=== PATIENT | female | born 1945 | race Two or more races ===

== ENCOUNTER → 2023-05-01 | Outpatient (CLI) | payer OTHER ==
[~2023-05-01] VITALS: Ht 162.6 cm; Wt 68.0 kg
[~2023-05-01] MED LIST: ACETAMINOPHEN IV 1000 MG/100ML (10MG/ML) IV ONE; AMLO1TAB22 PO; ATOR20TA PO; CHOL100047 PO; CLON0.5T3 PO; CYAN1TAB14 PO; GABA-1250 PO; GABAPENTIN 400 MG CAP PO ONE; HYDR25TA5 PO; LIDO4LIQ EX; LIDOCAINE 4 MG/ML IV ONE; MAGN400T40 OR; METO25TA93 PO; OXYC325T14 PO; QUET50TA PO; SERT-206 PO; TIZA4CAP PO; TRANEXAMIC ACID 0 ML ONE; [UNRECOGNIZED DRUG - CODE] OR; oxyCODONE ER 20 MG TAB PO ONE
== END | disposition home or self-care (01) ==
LOC: EDSTATUS 07:00 → LAB 08:33 → SUR 08:33
PROVIDERS: ATTEND Orthopaedic Surgery
DX: M48.062 Spinal stenosis, lumbar region with neurogenic claudication (principal)
CPT/HCPCS: 86850; 86900; 86901

== ENCOUNTER 2025-02-22 12:56 | Inpatient (IN) | payer OTHER ==
[~2025-02-22] VITALS: Ht 162.6 cm; Wt 73.6 kg
[~2025-02-22 12:56] MED LIST changes: -ACETAMINOPHEN IV 1000 MG/100ML (10MG/ML) IV ONE; -GABAPENTIN 400 MG CAP PO ONE; -LIDOCAINE 4 MG/ML IV ONE; -TRANEXAMIC ACID 0 ML ONE; -oxyCODONE ER 20 MG TAB PO ONE
--- NOTE | 2025-02-22 13:20 | ED.PDOC ---
History of Present Illness HPI Comments 80 year old female with a history of [place], HTN, CVA, and Depression was BIB Daughter for the c/c of Hallucinations. Daughter states that pt has not been able to sleep for the past 3x days, and notes that pt has also been "seeing people" outside her window. Pt notes of taking oxycodone medication 4x a day for her herniated disks. No other symptoms or modifying factors reported at this time. Time Seen by MD: 13:16 Reviewed Notes: Nurses Notes, Medications, Allergies Allergies: Coded Allergies: Iodinated Diagnostic Agents (Unverified Allergy, Intermediate, hives, 04/30/23) Penicillins (Unverified Allergy, Intermediate, hives, 04/30/23) Home Meds Reported Medications Lidocaine HCl (Aspercreme Lidocaine) 4 % Liq, 4 % EX, LIQ 04/30/23 Magnesium Oxide (MAGNESIUM OXIDE) 400 Mg Tab, 400 MG OR DAILY, TAB 04/30/23 Cyanocobalamin (B12) 1,000 Mcg Tab, 1000 MCG PO DAILY, TAB 04/30/23 Cholecalciferol (D3) 1,000 Unit Cap, 1000 UNIT PO DAILY, CAP 04/30/23 Multiple Vitamins W/ Minerals (WOMENS DAILY FORMULA) Formula Tab, 1 OR DAILY, TAB 04/30/23 Sertraline Hcl (Sertraline Hcl) 50 Mg Tab, 50 MG PO, TAB 04/30/23 Quetiapine Fumerate (Seroquel) 50 Mg Tab, 25 MG PO, TAB 04/30/23 Clonazepam (KlonoPIN TABLET) 0.5 Mg Tb, 0.5 MG PO, TAB 04/30/23 Gabapentin (Gabapentin) 300 Mg Cap, 300 MG PO, CAP 04/30/23 Oxycodone W/ Acetaminophen (Apap/Oxycodone) 1 Tab Tab, 1 TAB PO, TAB 04/30/23 Tizanidine Hydrochloride (Zanaflex) 4 Mg Cap, 2 MG PO DAILY, CAP 04/30/23 Hctz (Hydrochlorothiazide) 25 Mg Tab, 1.5 MG PO DAILY, TAB 04/30/23 Atorvastatin Calcium (Lipitor) 20 Mg Tab, 20 MG PO DAILY, TAB 04/30/23 Metoprolol Succinate (Metoprolol Succinate Er) 25 Mg Tab, 25 MG PO DAILY, TAB 04/30/23 Amlodipine Besylate (Amlodipine Besylate) 5 Mg Tab, 5 MG PO DAILY, TAB 04/30/23 Information Source: Patient, Relative (Child) Mode of Arrival: Wheelchair Severity: Moderate Timing: Days Duration: Since onset, Days Prehospital treatment: None Past Medical History PAST MEDICAL HISTORY: CVA, Depression, HTN, [place] 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 [employer] 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 History Family History Family History: Unknown Social History Smoker: Non-Smoker Alcohol: Sober Drugs: Denies Drug Use Lives In: Home Constitutional: denies: chills, diaphoresis, fatigue, fever, malaise, sweats, weakness, others EENTM: denies: blurred vision, double vision, ear bleeding, ear discharge, ear drainage, ear pain, ear ringing, eye pain, eye redness, hearing loss, mouth pain, mouth swelling, nasal discharge, nose bleeding, nose congestion, nose pain, photophobia, tearing, throat pain, throat swelling, voice changes, others Respiratory: denies: cough, hemoptysis, orthopnea, SOB at rest, shortness of breath, SOB with excertion, stridor, wheezing, others Cardiovascular: denies: chest pain, dizzy spells, diaphoresis, Dyspnea on exertion, edema, irregular heart beat, left arm pain, lightheadedness, palpitations, PND, syncope, others Gastrointestinal: reports: nausea; denies: abdomen distended, abdominal pain, blood streaked bowels, constipated, diarrhea, dysphagia, difficulty swallowing, hematemesis, melena, poor appetite, poor fluid intake, rectal bleeding, rectal pain, vomiting, others Genitourinary: denies: abnormal vagina bleeding, burning, dyspareunia, dysuria, flank pain, frequency, hematuria, incontinence, pain, , vagina discharge, urgency, others Neurological: denies: dizziness, fainting, headache, left sided numbness, left sided weakness, numbness, paresthesia, pre-existing deficit, right sided numbness, right sided weakness, seizure, speech problems, tingling, tremors, weakness, others Musculoskeletal: denies: back pain, gout, joint pain, joint swelling, muscle pain, muscle stiffness, neck pain, others Integumetry: denies: bruises, change in color, change in hair/nails, dryness, laceration, lesions, lumps, rash, wounds, others Allergic/Immunocompromised: denies: Difficulty Healing, Frequent Infections, Hives, Itching, others Hematologic/Lymphatic: denies: anemia, blood clots, easy bleeding, easy bruising, swollen glands, others Endocrine: denies: excessive hunger, excessive sweating, excessive thirst, excessive urination, flushing, intolerance to cold, intolerance to heat, unexplained weight gain, unexplained weight loss, others Psychiatric: reports: schizophrenia, sleepless; denies: anxiety, bipolar disorder, depression, hopeless, panic disorder, suicidal, others All Other Systems: Reviewed and Negative Physical Exam General Appearance: Moderate Distress HEENT: Pale Conjuntivae (L), Pale Conjuntivae (R), Pharynx Normal, TMs Normal Neck: Full Range of Motion, Non-Tender, Normal, Normal Inspection Respiratory: Chest Non-Tender, Lungs Clear, No Accessory Muscle Use, No Respiratory Distress, Normal Breath Sounds Cardiovascular: No Edema, No JVD, No Murmur, No Gallop, Normal Peripheral Pulses, Regular Rate/Rhythm Breast Exam: Deferred Gastrointestinal: No Organomegaly, Non Tender, No Pulsatile Mass, Normal Bowel Sounds, Soft Genitalia: Deferred Pelvic: Deferred Rectal: Deferred Extremities: No calf tenderness, Normal capillary refill, Normal inspection, Normal range of motion, Non-tender, No pedal edema Musculoskeletal : Apperance: Normal Neurologic: Alert, manager environmental II-XII nml as Tested, No Motor Deficits, Normal Affect, Normal Mood, No Sensory Deficits Cerebellar Function: Normal Reflexes: Normal Skin: Dry, Normal Color, Warm Lymphatic: No Adenopathy Was a procedure done? Was a procedure done?: No Differential Dx Considerations may include: Generalized weakness, electrolyte imbalance, dehydration X-Ray, Labs, Meds, VS Vital Signs Date Time Temp Pulse Resp B/P (MAP) Pulse Ox O2 Delivery O2 Flow Rate FiO2 02/22/25 13:10 99.7 86 18 99/75 (83) 98 99.7 Lab Test 02/22/25 13:39 02/22/25 13:00 Range/Units White Blood Count 4.6 4.4-10.8 10^3/uL Red Blood Count 4.09 4.0-5.20 10^6/uL Hemoglobin 13.1 12.2-16.2 g/dL Hematocrit 38.8 36.0-46.0 % Mean Corpuscular Volume 94.9 80.0-100.0 fL Mean Corpuscular Hemoglobin 32.1 H 28.0-32.0 pg Mean Corpuscular Hemoglobin Concent 33.9 32.0-36.0 g/dL Red Cell Distribution Width 15.5 H 11.8-14.3 % Platelet Count 161 140-450 10^3/uL Mean Platelet Volume 9.0 6.9-10.8 fL Neutrophils (%) (Auto) 62.5 37.0-80.0 % Lymphocytes (%) (Auto) 25.3 10.0-50.0 % Monocytes (%) (Auto) 10.4 0.0-12.0 % Eosinophils (%) (Auto) 1.3 0.0-7.0 % Basophils (%) (Auto) 0.5 0.0-2.0 % Neutrophils # (Auto) 2.9 1.6-8.6 10 ^3/uL Lymphocytes # (Auto) 1.2 0.4-5.4 10 ^3/uL Monocytes # (Auto) 0.5 0-1.3 10 ^3/uL Eosinophils # (Auto) 0.1 0-0.8 10 ^3/uL Basophils # (Auto) 0 0-0.2 10 ^3/uL Nucleated Red Blood Cells 0.0 % Sodium Level 141 136-145 mmol/L Potassium Level 3.9 3.5-5.1 mmol/L Chloride Level 106 98-107 mmol/L Carbon Dioxide Level 28 20-31 mmol/L Anion Gap 7 5-15 Blood Urea Nitrogen 16 9-23 mg/dL Creatinine 1.00 0.550-1.02 mg/dL Glomerular Filtration Rate Calc 57 >90 mL/min BUN/Creatinine Ratio 16.0 10.0-20.0 Serum Glucose 130 H 74-106 mg/dL Calcium Level 9.9 8.7-10.4 mg/dL Plasma/Serum Blood Alcohol < 3.0 <10 mg/dL Urine Color Light-yellow Yellow Urine Clarity Clear Clear Urine pH 7.0 5.0-9.0 Urine Specific [place] 1.014 1.001-1.035 Urine Protein Negative Negative Urine Ketones Negative Negative Urine Blood Negative Negative /uL Urine Nitrite Negative Negative Urine Bilirubin Negative Negative Urine Urobilinogen Normal Negative mg/dL Urine Leukocyte Esterase 1+ Negative /uL Urine RBC 2 0 - 4 /hpf Urine Microscopic WBC 2 0-5 /HPF Urine Squamous Epithelial Cells Few <5 /hpf Urine Bacteria Few H None Seen /hpf Urine Hyaline Casts Few 0 - 2 /lpf Urine Glucose Normal Normal mg/dL IMPRESSION: No acute intracranial abnormality. The urine test is positive for UTI The CBC and chemistry panel are within normal limits The alcohol level is negative At this time the patient is being given Rocephin 1 g IV piggyback At this time, the patient is being admitted to the hospitalist The patient understands and agrees with the management. Time of 1ST Reevaluation: 13:46 Reevaluation 1ST: Unchanged Patient Education/Counseling: Diagnosis, Treatment, Prognosis Family Education/Counseling: Diagnosis, Treatment, Prognosis SEPSIS Sepsis Screen Physician Orders Head Without Contrast (02/22/25 13:16) Geothermal Production Manager (02/22/25 13:16) Pulse Oximetry (02/22/25 13:16) Blood Pressure (02/22/25 13:16) Heplock Iv (02/22/25 13:16) Ceftriaxone 1gm/50ml D5w (Rocephin) (02/22/25 16:15) Vital Signs Date Time Temp Pulse Resp B/P (MAP) Pulse Ox O2 Delivery O2 Flow Rate FiO2 02/22/25 13:10 99.7 86 18 99/75 (83) 98 99.7 Laboratory Tests Test 02/22/25 13:39 White Blood Count 4.6 10^3/uL (4.4-10.8) Departure 1 Departure Time of Disposition: 16:15 Impression: Primary Impression: Confusion Additional Impressions: UTI (urinary tract infection) Qualified Codes: N30.00 - Acute cystitis without hematuria Medication reaction Qualified Codes: T50.905A - Adverse effect of unspecified drugs, medicaments and biological substances, initial encounter Disposition: ADMITTED INPATIENT Admit to: Med Surg Condition: Fair Critical Care Note Critical Care Time?: No Stability Stability form required: Yes Unstable for transfer: ED Physician Assesment (Clinical assesment) Heart Score Heart Score: Heart Score Response (Comments) Value History Moderate Suspicious 1 EKG Normal 0 Age 45-64 1 Risk Factors 1 or 2 risk factors 1 Troponin Normal limit 0 Total 3 I personally scribed for ABEBE CYR MD ([email or web address]) on 02/22/25 at 13:20. Electronically submitted by Wesley Irving ([email or web address]). I personally scribed for ABEBE CYR MD ([email or web address]) on 02/22/25 at 13:52. Electronically submitted by Wesley Irving ([email or web address]). ABEBE CYR MD Feb 22, 2025 13:20
--- NOTE | 2025-02-22 13:46 | DVH ---
EXAM: CT HEAD WITHOUT CONTRAST INDICATION: aloc TECHNIQUE: CT of the head without intravenous contrast. Radiation Dose : 1. Head: CT Dose: CTDI volume is 53 mGy. Dose-length product is 962 mGy*cm The dose indicators for CT are the volume Computed Tomography (CT) Dose Index (CTDIvol) and the Dose Length Product (DLP), and are measured in units of mGy and mGy-cm, respectively. These indicators are not patient dose, but values generated from the CT scanner acquisition factors. The report includes radiation exposure data for exposures received during this examination. COMPARISON: None FINDINGS: There is no evidence of acute intracranial hemorrhage, extra-axial collection, mass effect, midline s hift, herniation or hydrocephalus. The ventricles, sulci and cisterns are age appropriate. The kan-white differentiation is intact. Patchy periventricular and subcortical white matter hypoattenuation is nonspecific but may be related to small vessel ischemic disease. The visualized paranasal sinuses and mastoid air cells are clear. The surrounding soft tissues and osseous structures are unremarkable. IMPRESSION: No acute intracranial abnormality. Radiation optimization: All CT scans at this facility use at least one of these dose optimization tierney hniques: automated exposure control mA and/or kV adjustment per patient size (includes targeted exam s where dose is matched to clinical indication) or iterative reconstruction.
[2025-02-22 13:58] LABS: Hematocrit 38.8 % (36.0-46.0); Hemoglobin 13.1 g/dL (12.2-16.2); Mean Corpuscular Hemoglobin 32.1 pg (28.0-32.0); Mean Corpuscular Volume 94.9 fL (80.0-100.0); Nucleated Red Blood Cells % 0.0 %
[2025-02-22 14:08] LABS: Chloride 106 mmol/L (98-107); Potassium 3.9 mmol/L (3.5-5.1); Sodium 141 mmol/L (136-145)
[2025-02-22 14:09] LABS: Anion Gap 7 (5-15); Carbon Dioxide 28 mmol/L (20-31)
[2025-02-22 14:10] LABS: Calcium 9.9 mg/dL (8.7-10.4)
[2025-02-22 14:14] LABS: BUN/Creatinine Ratio 16.0 (10.0-20.0); Blood Urea Nitrogen 16 mg/dL (9-23)
[2025-02-22 14:15] LABS: Glucose 130 mg/dL (74-106)
[2025-02-22 14:21] LABS: Urine Protein, UAD Negative (Negative)
[2025-02-22] MEDS ORDERED: ONDANSETRON HCL 4 MG/2 ML VIAL IV PRN (16:30)
[2025-02-22] MEDS ORDERED: NITROGLYCERIN 0.4 MG SL TAB SL PRN (16:30)
[2025-02-22] MEDS: SODIUM CHLORIDE 0.9% 1,000 ML IV SCH (17:24)
[2025-02-22] MEDS: cefTRIAXone 1GM/50ML D5W 50 ML IV ONE (17:25)
[2025-02-22 17:29] LABS: Free T4 (Free Thyroxine) 0.75 ng/dL (0.89-1.76)
[2025-02-22 19:10] LABS: Benzodiazephine Screen, Urine Neg (NEGATIVE); Opiate Scree,Urine Neg (NEGATIVE)
[2025-02-22 19:12] LABS: Amphetamine Screen, Urine Neg (NEGATIVE); Barbiturate Scree,Urine Neg (NEGATIVE); Cannabinoid Screen, Urine Neg (NEGATIVE); Cocaine Screen, Urine Neg (NEGATIVE); Phencyclidine Screen, Urine Neg (NEGATIVE)
[2025-02-22 21:31] VITALS: PULSE 87; RESP 16; O2SAT 99
[2025-02-22] MEDS ORDERED: GABAPENTIN 300 MG CAP PO SCH (22:00)
[2025-02-22 22:33] VITALS: BP 129/91; PULSE 76; RESP 16; TEMP 98.2; O2SAT 99
[2025-02-22] MEDS: GABAPENTIN 100 MG CAP PO SCH (22:51)
[2025-02-23] VITALS (8 sets, daily range): BP systolic 112–134; BP diastolic 66–87; PULSE 66–81; RESP 15–18; TEMP 97.9–98.9; O2SAT 97–99
--- NOTE | 2025-02-23 01:37 | DVHHP2 ---
CHARLOTTE LOZANO [address] 02/23/25 0137: History of Present Illness Reason for Visit: Confusion/hallucinations History of Present Illness Information in this HPI is limited due to the patient being a poor historian and hard of hearing. Patient was brought into the emergency department by her daughter for increased confusion and hallucinations x3 days. Emergency department report patient is dependent on opioids for chronic back pain. At this time patient feels this has been going on for a week worsening on the day of arrival. Patient also endorsed fall 2 months ago. At this time there are no complaints of fevers, chills, dizziness, shortness of breath, chest pain, abdominal pain, pelvic pain, urinary symptoms. 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 Dyspnea, Edema, Lt Headedness, Other Gastrointestinal: No: Nausea, Vomiting, Abdominal Pain, Diarrhea, Constipation, Melena, Hematochezia, Other Genitourinary: No Dysuria, No Frequency, No Incontinence, No Hematuria, No Retention, No Other Musculoskeletal: No: other, neck pain, shoulder pain, arm pain, back pain, hand pain, leg pain, foot pain Skin: No: Rash, Lesions, Jaundice, Bruising, Other Neurological: Confusion; No: Weakness, Numbness, Incoordination, Change in speech, Seizures, Other Allergies: Coded Allergies: Iodinated Diagnostic Agents (Unverified Allergy, Intermediate, hives, 04/30/23) Penicillins (Unverified Allergy, Intermediate, hives, 04/30/23) Medications Current Medications Medications Dose Ordered Sig/Vikas Route Start Time Stop Time Status Last Admin Dose Admin Amlodipine Besylate 5 mg DAILY PO 02/23/25 10:00 Atorvastatin Calcium 20 mg DAILY PO 02/23/25 10:00 Gabapentin 100 mg TID PO 02/22/25 22:00 UNV Hydrochlorothiazide 1.5 mg DAILY PO 02/23/25 10:00 Metoprolol Succinate 25 mg DAILY PO 02/23/25 10:00 Trazodone HCl 50 mg HS PO 02/22/25 22:00 02/22/25 22:53 50 MG Nitroglycerin 0.4 mg Q5MINP PRN SL 02/22/25 16:30 Morphine Sulfate 2 mg Q30M PRN IV 02/22/25 16:30 Ondansetron HCl 4 mg Q4HPRN PRN IV 02/22/25 16:30 Morphine Sulfate 2 mg Q6HPRN PRN IV 02/22/25 16:30 Famotidine 20 mg DAILY PO 02/23/25 10:00 Sodium Chloride 1,000 ml @ 75 mls/hr [id number] IV 02/22/25 16:30 02/22/25 22:51 75 MLS/HR Enoxaparin Sodium 40 mg DAILY SC 02/23/25 10:00 Gabapentin 100 mg TID PO 02/22/25 22:00 02/22/25 22:51 100 MG Exam Vital Signs Vital Signs Date Time Temp Pulse Resp B/P (MAP) Pulse Ox O2 Delivery O2 Flow Rate FiO2 02/22/25 23:02 Room Air* 0 21 02/22/25 22:33 98.2 76 16 129/91 (104) 99 98.2 General Appearance: Alert, Cooperative, No acute distress HEENT: Atraumatic, PERRLA, EOMI Respiratory: Clear to auscultation Cardiovascular: Regular rate, Normal S1, Normal S2 Abdominal: Normal bowel sounds, Soft, No tenderness Extremities: No cyanosis, No edema Neuro: Normal speech, Strength at 5/5 X4 ext Psych/Mental Status: Mental status NL, Mood NL Labs/Xrays Labs Test 02/22/25 13:39 02/22/25 13:00 Range/Units White Blood Count 4.6 4.4-10.8 10^3/uL Red Blood Count 4.09 4.0-5.20 10^6/uL Hemoglobin 13.1 12.2-16.2 g/dL Hematocrit 38.8 36.0-46.0 % Mean Corpuscular Volume 94.9 80.0-100.0 fL Mean Corpuscular Hemoglobin 32.1 H 28.0-32.0 pg Mean Corpuscular Hemoglobin Concent 33.9 32.0-36.0 g/dL Red Cell Distribution Width 15.5 H 11.8-14.3 % Platelet Count 161 140-450 10^3/uL Mean Platelet Volume 9.0 6.9-10.8 fL Neutrophils (%) (Auto) 62.5 37.0-80.0 % Lymphocytes (%) (Auto) 25.3 10.0-50.0 % Monocytes (%) (Auto) 10.4 0.0-12.0 % Eosinophils (%) (Auto) 1.3 0.0-7.0 % Basophils (%) (Auto) 0.5 0.0-2.0 % Neutrophils # (Auto) 2.9 1.6-8.6 10 ^3/uL Lymphocytes # (Auto) 1.2 0.4-5.4 10 ^3/uL Monocytes # (Auto) 0.5 0-1.3 10 ^3/uL Eosinophils # (Auto) 0.1 0-0.8 10 ^3/uL Basophils # (Auto) 0 0-0.2 10 ^3/uL Nucleated Red Blood Cells 0.0 % Sodium Level 141 136-145 mmol/L Potassium Level 3.9 3.5-5.1 mmol/L Chloride Level 106 98-107 mmol/L Carbon Dioxide Level 28 20-31 mmol/L Anion Gap 7 5-15 Blood Urea Nitrogen 16 9-23 mg/dL Creatinine 1.00 0.550-1.02 mg/dL Glomerular Filtration Rate Calc 57 >90 mL/min BUN/Creatinine Ratio 16.0 10.0-20.0 Serum Glucose 130 H 74-106 mg/dL Calcium Level 9.9 8.7-10.4 mg/dL Vitamin B12 Level 225 211-911 pg/mL Thyroid Stimulating Hormone (TSH) 6.70 H 0.55-4.78 uIU/mL Free Thyroxine (T4) Calculated 0.75 L 0.89-1.76 ng/dL Plasma/Serum Blood Alcohol < 3.0 <10 mg/dL Urine Color Light-yellow Yellow Urine Clarity Clear Clear Urine pH 7.0 5.0-9.0 Urine Specific [place] 1.014 1.001-1.035 Urine Protein Negative Negative Urine Ketones Negative Negative Urine Blood Negative Negative /uL Urine Nitrite Negative Negative Urine Bilirubin Negative Negative Urine Urobilinogen Normal Negative mg/dL Urine Leukocyte Esterase 1+ Negative /uL Urine RBC 2 0 - 4 /hpf Urine Microscopic WBC 2 0-5 /HPF Urine Squamous Epithelial Cells Few <5 /hpf Urine Bacteria Few H None Seen /hpf Urine Hyaline Casts Few 0 - 2 /lpf Urine Glucose Normal Normal mg/dL Urine Opiates Screen Neg NEGATIVE Urine Fentanyl Screen Neg NEGATIVE Urine Barbiturates Screen Neg NEGATIVE Urine Phencyclidine Screen Neg NEGATIVE Urine Amphetamines Screen Neg NEGATIVE Urine Benzodiazepines Screen Neg NEGATIVE Urine Cocaine Screen Neg NEGATIVE Urine Cannabinoids Screen Neg NEGATIVE Assessment/Plan Assessment/Plan Altered mental status UTI Hypertension Hx CVA Plan Admit medical floor Urine culture pending IVF, IV ABX Continue home medication Physical therapy evaluation GI ppx Pepcid / DVT ppx lovenox Plan discussed with: Patient Date of Service: Feb 23, 2025 Billing Provider: MARISA POST MD Common Visit Codes: NOT BILLABLE MARISA PSOT MD 02/23/25 1414: Review of Systems Allergies: Coded Allergies: Iodinated Diagnostic Agents (Unverified Allergy, Intermediate, hives, 04/30/23) Penicillins (Unverified Allergy, Intermediate, hives, 04/30/23) Additional Comments Additional Comments Additional Comments Patient's chart is reviewed and discussed with the nurse practitioner. Patient is seen and evaluated and admitted by nurse practitioner this morning. I agree with his evaluation, documentation, assessment and care plan as outlined. CHARLOTTE LOZANO NP Feb 23, 2025 01:37 MARISA POST MD Feb 23, 2025 14:14
[2025-02-23] MEDS: ATORVASTATIN 20 MG TAB PO SCH (09:55)
[2025-02-23] MEDS: METOPROLOL SUCCINATE XL 50 MG TAB PO SCH (09:55)
[2025-02-23] MEDS: ENOXAPARIN SOD 40 MG/0.4 ML SYRINGE SC SCH (09:55)
[2025-02-23] MEDS: FAMOTIDINE 20 MG TAB PO SCH (09:55)
[2025-02-23] MEDS ORDERED: hydroCHLOROthiazide 25 MG TAB PO SCH (10:00)
[2025-02-23] MEDS: hydroCHLOROthiazide 25 MG TAB PO SCH (14:12)
[2025-02-23] MEDS: MORPHINE SULFATE INJ 2 MG/ml SYRG IV PRN (14:19)
--- NOTE | 2025-02-23 15:58 | DVHINCON2 ---
Date of Service if different f: Feb 23, 2025 Consultation (PREEMPTION) Labs Laboratory Tests Test 02/22/25 13:00 02/22/25 13:39 Urine Color Light-yellow (Yellow) Urine Clarity Clear (Clear) Urine pH 7.0 (5.0-9.0) Urine Specific [place] 1.014 (1.001-1.035) Urine Protein Negative (Negative) Urine Ketones Negative (Negative) Urine Blood Negative /uL (Negative) Urine Nitrite Negative (Negative) Urine Bilirubin Negative (Negative) Urine Urobilinogen Normal mg/dL (Negative) Urine Leukocyte Esterase 1+ /uL (Negative) Urine RBC 2 /hpf (0 - 4) Urine Microscopic WBC 2 /HPF (0-5) Urine Squamous Epithelial Cells Few /hpf (<5) Urine Bacteria Few /hpf (None Seen) Urine Hyaline Casts Few /lpf (0 - 2) Urine Glucose Normal mg/dL (Normal) Urine Opiates Screen Neg (NEGATIVE) Urine Fentanyl Screen Neg (NEGATIVE) Urine Barbiturates Screen Neg (NEGATIVE) Urine Phencyclidine Screen Neg (NEGATIVE) Urine Amphetamines Screen Neg (NEGATIVE) Urine Benzodiazepines Screen Neg (NEGATIVE) Urine Cocaine Screen Neg (NEGATIVE) Urine Cannabinoids Screen Neg (NEGATIVE) White Blood Count 4.6 10^3/uL (4.4-10.8) Red Blood Count 4.09 10^6/uL (4.0-5.20) Hemoglobin 13.1 g/dL (12.2-16.2) Hematocrit 38.8 % (36.0-46.0) Mean Corpuscular Volume 94.9 fL (80.0-100.0) Mean Corpuscular Hemoglobin 32.1 pg (28.0-32.0) Mean Corpuscular Hemoglobin Concent 33.9 g/dL (32.0-36.0) Red Cell Distribution Width 15.5 % (11.8-14.3) Platelet Count 161 10^3/uL (140-450) Mean Platelet Volume 9.0 fL (6.9-10.8) Neutrophils (%) (Auto) 62.5 % (37.0-80.0) Lymphocytes (%) (Auto) 25.3 % (10.0-50.0) Monocytes (%) (Auto) 10.4 % (0.0-12.0) Eosinophils (%) (Auto) 1.3 % (0.0-7.0) Basophils (%) (Auto) 0.5 % (0.0-2.0) Neutrophils # (Auto) 2.9 10 ^3/uL (1.6-8.6) Lymphocytes # (Auto) 1.2 10 ^3/uL (0.4-5.4) Monocytes # (Auto) 0.5 10 ^3/uL (0-1.3) Eosinophils # (Auto) 0.1 10 ^3/uL (0-0.8) Basophils # (Auto) 0 10 ^3/uL (0-0.2) Nucleated Red Blood Cells 0.0 % Sodium Level 141 mmol/L (136-145) Potassium Level 3.9 mmol/L (3.5-5.1) Chloride Level 106 mmol/L (98-107) Carbon Dioxide Level 28 mmol/L (20-31) Anion Gap 7 (5-15) Blood Urea Nitrogen 16 mg/dL (9-23) Creatinine 1.00 mg/dL (0.550-1.02) Glomerular Filtration Rate Calc 57 mL/min (>90) BUN/Creatinine Ratio 16.0 (10.0-20.0) Serum Glucose 130 mg/dL (74-106) Calcium Level 9.9 mg/dL (8.7-10.4) Vitamin B12 Level 225 pg/mL (211-911) Thyroid Stimulating Hormone (TSH) 6.70 uIU/mL (0.55-4.78) Free Thyroxine (T4) Calculated 0.75 ng/dL (0.89-1.76) Plasma/Serum Blood Alcohol < 3.0 mg/dL (<10) Microbiology Date/Time Source Procedure Growth Status 02/22/25 13:00 Urine - Midstream Clean Catch Urine Culture - Preliminary Resulted Appetite: Fair Side effects of medications: No Appearance: Stated age Psychomotor activity: WNL Behavioral: Cooperative Eye contact: Appropriate Speech: WNL Affect: Mood Congruent Mood: Depressed, Anxious Thought processes: Linear/Goal-directed Thought content: Hallucinations (auditory) Suicidal ideations: Absent Homicidal ideations: Absent Orientation: Person, Place, Time, Situation Memory intact: Recent Intellect: Average Abstractability: WNL Concentration: Adequate Attention: Adequate Judgement: WNL Insight: Fair Vitals Vital Signs Date Time Temp Pulse Resp B/P (MAP) Pulse Ox O2 Delivery O2 Flow Rate FiO2 02/23/25 14:19 79 16 123/82 02/23/25 13:00 98.4 97 98.4 02/23/25 08:00 Room Air* 0 21 Current medications Current Medications Medications Dose Ordered Sig/Vikas Route Start Time Stop Time Status Last Admin Dose Admin Amlodipine Besylate 5 mg DAILY PO 02/23/25 10:00 02/23/25 09:55 5 MG Atorvastatin Calcium 20 mg DAILY PO 02/23/25 10:00 02/23/25 09:55 20 MG Gabapentin 100 mg TID PO 02/22/25 22:00 UNV Metoprolol Succinate 25 mg DAILY PO 02/23/25 10:00 Trazodone HCl 50 mg HS PO 02/22/25 22:00 02/22/25 22:53 50 MG Nitroglycerin 0.4 mg Q5MINP PRN SL 02/22/25 16:30 Morphine Sulfate 2 mg Q30M PRN IV 02/22/25 16:30 Ondansetron HCl 4 mg Q4HPRN PRN IV 02/22/25 16:30 Morphine Sulfate 2 mg Q6HPRN PRN IV 02/22/25 16:30 02/23/25 14:19 2 MG Famotidine 20 mg DAILY PO 02/23/25 10:00 02/23/25 09:55 20 MG Sodium Chloride 1,000 ml @ 75 mls/hr [id number] IV 02/22/25 16:30 02/22/25 22:51 75 MLS/HR Enoxaparin Sodium 40 mg DAILY SC 02/23/25 10:00 02/23/25 09:55 40 MG Gabapentin 100 mg TID PO 02/22/25 22:00 02/23/25 14:12 100 MG Hydrochlorothiazide 12.5 mg DAILY PO 02/23/25 12:15 02/23/25 14:12 12.5 MG Treatment plan discussed: With staff Medication adjusted: Yes Diagnosis: unspecified psychosis, 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 Patient does not appear to meet hold criteria Recommend to restart sertraline 50mg po daily. d/c Seroquel and trazodone Zyprexa 5mg po qhs for psychosis Re-evaluation as needed. History of Present Illness Reason for Consult : Patient experiencing hallucinations HPI : This is a 80-year-old female with prior hx of depression and anxiety presents here bib daughter for auditory hallucinations. Patient is evaluated via telepsychiatry. Patient is hard of hearing and without her hearing aid, somewhat made interview more difficult, nurse helped to relay questions from automobile service writer to her. On evaluation, patient reports having auditory hallucinations for less one year. She denies voices prior this. She denies any known prior stressors before this. She did not tell anyone about the hallucinations including her psychiatrist because did not want people to think she was crazy. She reports jona cuadra heard her talking to voices at home and brought here for evaluation. She reports hearing voices of mostly males and loud music. She describes as sometimes like "an argument" such as voices telling her someone is coming to your house. She argues with voices denying it. She reports feeling like someone is trying to control me through the voices. She often becomes frustrated and curses at the voices. She denies voices are commanding. She denies any visual hallucinations. She feels depressed. She denies feeling hopeless. She denies suicidal/homicidal ideation. She reports " I love me too much." She wants to get help for this to go away. She reports having poor sleep due to voices. She reports appetite as ok. Past Psychiatric History : She reports prior diagnoses of depression and anxiety. She has a psychiatrist and therapist. Per chart review, received sertraline 50mg and seroquel, patient was unable to recall names of medication, but reports taking a lot of medications. It is not clear if compliant with meds She does reports hx of Klonopin and after moving to new location and new psychiatrist, stopped receiving this. She reports doing fine until voices began about less than one year . She denies prior psych admissions or holds. She denies prior suicide attempts. Past Medical History : She hx of HTN, CVA, Social History : She lives with daughter, not . She denies any history or current use of drugs or alcohol. Toxicology is negative. She reports both mother and grandmother had dementia. SIGIFREDO RICARDO [facility] Feb 23, 2025 15:57
[2025-02-24 01:00] VITALS: BP 130/76; PULSE 78; RESP 17; TEMP 98; O2SAT 98
[2025-02-24 04:45] VITALS: BP 136/84; PULSE 74; RESP 16; TEMP 98.3; O2SAT 98
[2025-02-24 05:52] LABS: Chloride 107 mmol/L (98-107); Potassium 3.9 mmol/L (3.5-5.1); Sodium 142 mmol/L (136-145)
[2025-02-24 05:53] LABS: Anion Gap 8 (5-15); Carbon Dioxide 27 mmol/L (20-31)
[2025-02-24 05:54] LABS: Calcium 10.0 mg/dL (8.7-10.4)
[2025-02-24 05:58] LABS: BUN/Creatinine Ratio 17.4 (10.0-20.0); Blood Urea Nitrogen 15 mg/dL (9-23); Glucose 91 mg/dL (74-106)
[2025-02-24 07:46] VITALS: RESP 16
[2025-02-24] MEDS: MORPHINE SULFATE INJ 2 MG/ml SYRG IV PRN (08:51)
[2025-02-24 09:00] VITALS: BP 123/86; PULSE 80; RESP 18; TEMP 98.3; O2SAT 98
[2025-02-24 12:30] VITALS: BP 128/88; PULSE 71; RESP 18; TEMP 98.2; O2SAT 97
[2025-02-24] MEDS ORDERED: OLAN1TAB7 PO (14:25)
--- NOTE | 2025-02-24 14:27 | DVHDS2 ---
Discharge Summary Date of Admission Feb 22, 2025 at 16:22 Date of Discharge: Feb 24, 2025 Admitting Diagnosis Hearing sounds Labs/Diagnostic Data: Laboratory Results Test 02/24/25 04:58 02/22/25 13:39 02/22/25 13:00 Sodium Level 142 mmol/L (136-145) Potassium Level 3.9 mmol/L (3.5-5.1) Chloride Level 107 mmol/L (98-107) Carbon Dioxide Level 27 mmol/L (20-31) Anion Gap 8 (5-15) Blood Urea Nitrogen 15 mg/dL (9-23) Creatinine 0.86 mg/dL (0.550-1.02) Glomerular Filtration Rate Calc 69 mL/min (>90) BUN/Creatinine Ratio 17.4 (10.0-20.0) Serum Glucose 91 mg/dL (74-106) Calcium Level 10.0 mg/dL (8.7-10.4) White Blood Count 4.6 10^3/uL (4.4-10.8) Red Blood Count 4.09 10^6/uL (4.0-5.20) Hemoglobin 13.1 g/dL (12.2-16.2) Hematocrit 38.8 % (36.0-46.0) Mean Corpuscular Volume 94.9 fL (80.0-100.0) Mean Corpuscular Hemoglobin 32.1 pg (28.0-32.0) Mean Corpuscular Hemoglobin Concent 33.9 g/dL (32.0-36.0) Red Cell Distribution Width 15.5 % (11.8-14.3) Platelet Count 161 10^3/uL (140-450) Mean Platelet Volume 9.0 fL (6.9-10.8) Neutrophils (%) (Auto) 62.5 % (37.0-80.0) Lymphocytes (%) (Auto) 25.3 % (10.0-50.0) Monocytes (%) (Auto) 10.4 % (0.0-12.0) Eosinophils (%) (Auto) 1.3 % (0.0-7.0) Basophils (%) (Auto) 0.5 % (0.0-2.0) Neutrophils # (Auto) 2.9 10 ^3/uL (1.6-8.6) Lymphocytes # (Auto) 1.2 10 ^3/uL (0.4-5.4) Monocytes # (Auto) 0.5 10 ^3/uL (0-1.3) Eosinophils # (Auto) 0.1 10 ^3/uL (0-0.8) Basophils # (Auto) 0 10 ^3/uL (0-0.2) Nucleated Red Blood Cells 0.0 % Vitamin B12 Level 225 pg/mL (211-911) Thyroid Stimulating Hormone (TSH) 6.70 uIU/mL (0.55-4.78) Free Thyroxine (T4) Calculated 0.75 ng/dL (0.89-1.76) Plasma/Serum Blood Alcohol < 3.0 mg/dL (<10) Urine Color Light-yellow (Yellow) Urine Clarity Clear (Clear) Urine pH 7.0 (5.0-9.0) Urine Specific [place] 1.014 (1.001-1.035) Urine Protein Negative (Negative) Urine Ketones Negative (Negative) Urine Blood Negative /uL (Negative) Urine Nitrite Negative (Negative) Urine Bilirubin Negative (Negative) Urine Urobilinogen Normal mg/dL (Negative) Urine Leukocyte Esterase 1+ /uL (Negative) Urine RBC 2 /hpf (0 - 4) Urine Microscopic WBC 2 /HPF (0-5) Urine Squamous Epithelial Cells Few /hpf (<5) Urine Bacteria Few /hpf (None Seen) Urine Hyaline Casts Few /lpf (0 - 2) Urine Glucose Normal mg/dL (Normal) Urine Opiates Screen Neg (NEGATIVE) Urine Fentanyl Screen Neg (NEGATIVE) Urine Barbiturates Screen Neg (NEGATIVE) Urine Phencyclidine Screen Neg (NEGATIVE) Urine Amphetamines Screen Neg (NEGATIVE) Urine Benzodiazepines Screen Neg (NEGATIVE) Urine Cocaine Screen Neg (NEGATIVE) Urine Cannabinoids Screen Neg (NEGATIVE) Other Laboratory Tests 02/24/25 04:58 02/22/25 13:39 Brief Hx & Hospital Course: Information in this HPI is limited due to the patient being a poor historian and hard of hearing. Patient was brought into the emergency department by her daughter for increased confusion and hallucinations x3 days. Emergency department report patient is dependent on opioids for chronic back pain. At this time patient feels this has been going on for a week worsening on the day of arrival. Patient also endorsed fall 2 months ago. At this time there are no complaints of fevers, chills, dizziness, shortness of breath, chest pain, abdominal pain, pelvic pain, urinary symptoms. She is admitted and evaluated by tele psychiatrist. Patient noted to have a auditory hallucinations hearing music. Her psychiatric medications have been adjusted. Patient is advised to discontinue Xanax and Seroquel. Patient advised to resume her antidepressant and started on olanzapine. Otherwise rest of her workup and evaluations normal in the hospital. She is feeling better. Therefore it is felt she could be safely discharged home. I have talked with the patient she has verbalized understanding her medication adjustments and discharge care plan as outlined. Condition at Discharge: Stable Final Diagnosis/Problems List Auditory hallucinations, chronic pain syndrome with opioid dependency, depression/anxiety disorder Discharge Disposition: Home Discharge Instruct/Medications Diet: Consistent carbohydrate, Cardiac 2g Na,low cholest Activity: No Restrictions, As Tolerated Activity comment: With the assistance/walker Follow Up/Referral: Primary care physician next week and your psychiatrist in two weeks for further management evaluation of auditory hallucinations. Medications: Educated to stop taking Xanax Zanaflex and Seroquel for Psychiatry recommendation. Continue sertraline and olanzapine as prescribed. New Medications: Olanzapine (Olanzapine) 5 Mg Tab 1 TAB PO HS, #30 TAB Continued Medications: Amlodipine Besylate (Amlodipine Besylate) 5 Mg Tab 5 MG PO DAILY, TAB Atorvastatin Calcium (Lipitor) 20 Mg Tab 20 MG PO DAILY, TAB Cholecalciferol (D3) 1,000 Unit Cap 1000 UNIT PO DAILY, CAP Gabapentin (Gabapentin) 300 Mg Cap 300 MG PO, CAP Hctz (Hydrochlorothiazide) 25 Mg Tab 1.5 MG PO DAILY, TAB Lidocaine HCl (Aspercreme Lidocaine) 4 % Liq 4 % EX, LIQ Metoprolol Succinate (Metoprolol Succinate Er) 25 Mg Tab 25 MG PO DAILY, TAB Multiple Vitamins W/ Minerals (Womens Daily Formula) Formula Tab 1 OR DAILY, TAB Oxycodone W/ Acetaminophen (Apap/Oxycodone) 1 Tab Tab 1 TAB PO, TAB Sertraline Hcl (Sertraline Hcl) 50 Mg Tab 50 MG PO, TAB Discontinued Medications: Clonazepam (KlonoPIN TABLET) 0.5 Mg Tb 0.5 MG PO, TAB Cyanocobalamin (B12) 1,000 Mcg Tab 1000 MCG PO DAILY, TAB Magnesium Oxide (Magnesium Oxide) 400 Mg Tab 400 MG OR DAILY, TAB Quetiapine Fumerate (Seroquel) 50 Mg Tab 25 MG PO, TAB Tizanidine Hydrochloride (Zanaflex) 4 Mg Cap 2 MG PO DAILY, CAP Scheduled Amlodipine Besylate (Amlodipine Besylate), 5 MG PO DAILY, (Reported) Atorvastatin Calcium (Lipitor), 20 MG PO DAILY, (Reported) Cholecalciferol (D3), 1,000 UNIT PO DAILY, (Reported) Hctz (Hydrochlorothiazide), 1.5 MG PO DAILY, (Reported) Metoprolol Succinate (Metoprolol Succinate Er), 25 MG PO DAILY, (Reported) Multiple Vitamins W/ Minerals (Womens Daily Formula), 1 OR DAILY, (Reported) Olanzapine (Olanzapine), 1 TAB PO HS Miscellaneous Medications Gabapentin (Gabapentin), 300 MG PO, (Reported) Lidocaine HCl (Aspercreme Lidocaine), 4 % EX, (Reported) Oxycodone W/ Acetaminophen (Apap/Oxycodone), 1 TAB PO, (Reported) Sertraline Hcl (Sertraline Hcl), 50 MG PO, (Reported) Discontinued Medications Clonazepam (KlonoPIN TABLET), 0.5 MG PO, (Reported) Cyanocobalamin (B12), 1,000 MCG PO DAILY, (Reported) Magnesium Oxide (Magnesium Oxide), 400 MG OR DAILY, (Reported) Quetiapine Fumerate (Seroquel), 25 MG PO, (Reported) Tizanidine Hydrochloride (Zanaflex), 2 MG PO DAILY, (Reported) Discharge Statement: "Patient was advised to return to the ER or call 911 if any headaches, dizziness, shortness of breath, chest pain, abdominal pain, bleeding, fevers, or worsening of medical condition. Patient was counseled about treatment plan, medications, possible side effects, patientverbalized understanding. All questions were answered to the best of my ability. This discharge took greater then 30 minutes in planning, reviewing documentation, counseling the patient, and discussing with other team members." ASSESSMENT ASSESSMENT Assessment Auditory hallucinations, chronic pain syndrome with opioid dependency, depression/anxiety disorder MARISA POST MD Feb 24, 2025 14:27
[2025-02-24 14:50] VITALS: BP 123/86; PULSE 80; TEMP 36.8
[2025-02-24] MEDS ORDERED: OLANZapine 5 MG TAB PO SCH (22:00)
[2025-02-25] MEDS ORDERED: SERTRALINE HCL 50 MG TAB PO SCH (10:00)
== END 2025-02-24 17:40 | disposition home or self-care (01) | DRG 71 ==
LOC: ER 12:56 → OVERFLOW 16:22 → WEST WING 22:36
PROVIDERS: ADMIT Hospitalist; ATTEND Hospitalist
DX: G93.41 Metabolic encephalopathy (principal); F11.20 Opioid dependence, uncomplicated; F32.3 Major depressive disorder, single episode, severe with psychotic features; I10 Essential (primary) hypertension; G89.4 Chronic pain syndrome; F41.9 Anxiety disorder, unspecified; I25.10 Atherosclerotic heart disease of native coronary artery without angina pectoris; Z86.73 Personal history of transient ischemic attack (TIA), and cerebral infarction without residual deficits; I25.2 Old myocardial infarction; Z88.0 Allergy status to penicillin
CPT/HCPCS: 36415; 70450; 80048; 80307; 80320; 81001; 82607; 84439; 84443; 85025; 87086; 96361; 96365; 97110; 97116; 97163; 97530; G0378